=== PATIENT | male | born 1970 | race Caucasian/White ===

== ENCOUNTER 2020-08-06 19:12 | Emergency (ER) | payer OTHER ==
[2020-08-06 19:29] VITALS: BP 165/78; PULSE 73; RESP 17; TEMP 98.2
[2020-08-06] MEDS ORDERED: BACITRACIN OINT 1 EACH PACKET TOPICAL ONE (20:20)
[2020-08-06] MEDS ORDERED: LIDOCAINE 1% INJ 10MG/ML (20 ML MDV) SQ ONE (20:20)
--- NOTE | 2020-08-06 20:22 | ED ---
Wound/Laceration HPI - General Chief Complaint: Wound/Laceration Stated Complaint: [facility]- Finger Lac Time Seen by Provider: 08/06/20 20:11 Source: patient Mode of arrival: ambulatory Limitations: no limitations - History of Present Illness Initial Comments: Patient is a 42-year-old male presenting to the emergency Department with complaints of a laceration to his left index finger. 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 Patient states it did bleed a lot initially however it is controlled with a bandage at this time. His tetanus vaccine is up-to-date. He is not on blood thinners. He has no further complaints. - Related Data Allergies Allergy/AdvReac Type Severity Reaction Status Date / Time No Known Allergies Allergy Verified 08/06/20 19:29 Review of Systems ROS Statement: Those systems with pertinent positive or pertinent negative responses have been documented in the HPI. ROS Other: All systems not noted in ROS Statement are negative. Past Medical History Past Medical History: No Reported History History of Any Multi-Drug Resistant Organisms: None Reported Past Surgical History: No Surgical Hx Reported Past Psychological History: No Psychological Hx Reported Smoking Status: Current every day smoker Past Alcohol Use History: Occasional Past Drug Use History: None Reported General Exam - General Exam Comments Initial Comments: GENERAL: Patient is well-developed and well-nourished. Patient is nontoxic and in no acute distress. HEAD: Atraumatic, normocephalic. EYES: Pupils equal round and reactive to light, extraocular movements intact, sclera anicteric, conjunctiva are normal. Eyelids were unremarkable. ENT: Nares patent, oropharynx clear without exudates. Moist mucous membranes. NECK: Normal range of motion, supple without lymphadenopathy or JVD. LUNGS: Unlabored respirations. Breath sounds clear to auscultation bilaterally and equal. No wheezes rales or rhonchi. HEART: Regular rate and rhythm without murmurs, rubs or gallops. ABDOMEN: Soft, nontender, normoactive bowel sounds. No guarding, no rebound. No masses appreciated. : Deferred MUSCULOSKELETAL: Normal extremities with adequate strength and normal range of motion, no pitting or edema. No clubbing or cyanosis. She has full range of motion of his left fingers and hand. NEUROLOGICAL: Patient is alert and oriented x 3. Normal speech, normal gait. PSYCH: Normal mood, normal affect. SKIN: Warm, Dry, normal turgor, no rashes. Patient has a 1 cm laceration to the dorsal aspect of the left index finger, distal end. No nail involvement. Bleeding is controlled. Limitations: no limitations Course Vital Signs 08/06/20 19:26 Temperature 98.2 F Pulse Rate 73 Respiratory 17 Rate Blood Pressure 165/78 O2 Sat by Pulse 97 Oximetry Procedures - Laceration Laceration #1 Consent Obtained: verbal consent Indication: laceration Site: hand (Left index finger) Size (cm): 1 Description: linear Depth: simple, single layer Anesthetic Used: lidocaine 1% Anesthesia Technique: local infiltration Amount (mls): 2 Pre-repair: irrigated extensively Type of Sutures: nylon Size of Sutures: 4-0 Number of Sutures: 3 Technique: simple, interrupted Patient Tolerated Procedure: well Medical Decision Making - Medical Decision Making Patient is a 42-year-old male here with a 1 cm laceration into the left index finger. He is up-to-date with his tetanus vaccine. Patient's wound was cleaned, closed with 3, 4-0 sutures. Patient tolerated procedure well. He will have sutures removed in 7-10 days. Patient is stable for discharge. Patient is in agreement with this plan of care. Return parameters were discussed with the patient and they verbalized understanding. Case discussed with Dr. Berry. Disposition Clinical Impression: Laceration of left index finger Disposition: HOME SELF-CARE Condition: Stable Instructions (If sedation given, give patient instructions): Care For Your Stit ches (ED) Additional Instructions: Please return to the Emergency Department if symptoms worsen or any other concerns. Stitches need to removed in 7-10 days. Keep area clean and dry. Keep covered while working. Do not soak the wound. Is patient prescribed a controlled substance at d/c from ED?: No Referrals: Sapna Almazan DO [Primary Care Provider] - 1-2 days Time of Disposition: 20:55
== END 2020-08-06 21:09 | disposition home or self-care (01) ==
LOC: EC 19:12
DX: S61.211A Laceration without foreign body of left index finger without damage to nail, initial encounter (principal); F17.200 Nicotine dependence, unspecified, uncomplicated; W27.8XXA Contact with other nonpowered hand tool, initial encounter
CPT/HCPCS: 99282; 12001; J2001

== ENCOUNTER 2020-08-07 18:15 | Emergency (ER) | payer OTHER ==
[2020-08-07 18:19] VITALS: BP 160/117; PULSE 98; RESP 20; TEMP 98.1
--- NOTE | 2020-08-07 18:55 | ED ---
Extremity Problem HPI - General Chief complaint: Extremity Problem,Nontraumatic Stated complaint: revisit finger injury Time Seen by Provider: 08/07/20 18:28 Source: patient, RN notes reviewed Mode of arrival: ambulatory Limitations: no limitations - History of Present Illness Initial comments: 50-year-old white male patient presents to the emergency room with left index finger bleeding. 3 sutures placed yesterday and patient has been pending and at work which caused bleeding. Patient arrived with bulky gauze dressing dry and intact no active bleeding noted. Sutures intact. -: minutes(s) (20) Location: left Radiation: none Severity scale (1-10): 0 Consistency: now resolved Improves with: immobilization Worsens with: other (flexion of finger) Associated Symptoms: other (sutures at site) - Related Data Allergies Allergy/AdvReac Type Severity Reaction Status Date / Time No Known Allergies Allergy Verified 08/07/20 18:19 Review of Systems ROS Statement: Those systems with pertinent positive or pertinent negative responses have been documented in the HPI. ROS Other: All systems not noted in ROS Statement are negative. Past Medical History Past Medical History: No Reported History History of Any Multi-Drug Resistant Organisms: None Reported Past Surgical History: No Surgical Hx Reported Past Psychological History: No Psychological Hx Reported Smoking Status: Current every day smoker Past Alcohol Use History: Occasional Past Drug Use History: None Reported General Exam Limitations: no limitations General appearance: alert, in no apparent distress Head exam: Present: atraumatic, normocephalic, normal inspection Eye exam: Present: normal appearance, PERRL, EOMI. Absent: scleral icterus, conjunctival injection, periorbital swelling Respiratory exam: Present: normal lung sounds bilaterally. Absent: respiratory distress, wheezes, rales, rhonchi, stridor Cardiovascular Exam: Present: regular rate, normal rhythm, normal heart sounds. Absent: systolic murmur, diastolic murmur, rubs, gallop, clicks Left Hand Wrist exam: Present: laceration (3 sutures to left pip joint intact with so redness, purulence or hematoma, Cap refill less than 2 seconds) Vascular: Present: normal capillary refill Neurological exam: Present: alert, oriented X3, CN II-XII intact Psychiatric exam: Present: normal affect, normal mood Skin exam: Present: warm, dry, intact, normal color. Absent: rash Course Vital Signs 08/07/20 18:17 Temperature 98.1 F Pulse Rate 98 Respiratory 20 Rate Blood Pressure 160/117 O2 Sat by Pulse 99 Oximetry Medical Decision Making - Medical Decision Making Sutures intact no signs of infection capillary refill less than 2 seconds, patient able to flex and extend finger without pain or restriction. Patient given foam finger splint to wear to immobilize joint. Patient requesting work for note, restricting movement of joint until sutures are removed. Disposition Clinical Impression: Encounter for wound re-check Disposition: HOME SELF-CARE Condition: Good Additional Instructions: Immobilize joint until sutures are removed in 7 days, use either bulky gauze dressing or foam aluminum splint provided Is patient prescribed a controlled substance at d/c from ED?: No Referrals: None,Stated [Primary Care Provider] - 1-2 days Time of Disposition: 18:58
== END 2020-08-07 19:06 | disposition home or self-care (01) ==
LOC: EC 18:15
DX: Z48.00 Encounter for change or removal of nonsurgical wound dressing (principal); F17.200 Nicotine dependence, unspecified, uncomplicated
CPT/HCPCS: 99281

== ENCOUNTER 2020-09-04 23:48 | Emergency (ER) | payer BC ==
[2020-09-04 23:59] VITALS: BP 132/94; PULSE 98; RESP 20; TEMP 98.3
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
== END 2020-09-05 02:10 | disposition home or self-care (01) ==
LOC: EC 23:48
DX: Z02.83 Encounter for blood-alcohol and blood-drug test (principal); F17.200 Nicotine dependence, unspecified, uncomplicated; F12.90 Cannabis use, unspecified, uncomplicated
CPT/HCPCS: 99281